=== PATIENT | male | born 1955 | race Caucasian/White ===

== ENCOUNTER 2024-01-21 11:33 | Outpatient (AMB) | payer MEDICARE, SELFPAY ==
--- NOTE | 2024-01-21 11:39 | A.OFFVIS_ITS ---
Intake Visit Reasons: Elevated PSA Intake Note: New Patient presents for initial visit for elevated psa Urology Medications: none Blood Thinner: none Salt Refiner Required: No Accompanied by: Self / Same As Patient Allergies No Known Allergies Allergy (Verified 01/21/24 12:27) Medication List - Last Reconciled 01/21/24 by SUGAR Pierre cholecalciferol (vitamin D3) 50 mcg PO DAILY multivitamin 1 tab PO DAILY turmeric root extract 500 mg PO DAILY HPI Comments Details: Saturnino is a very pleasant 68-year-old male patient of Dr. Lassiter. He has a past medical history of hyperlipidemia, osteoarthritis, and elevated PSA. He presents to the office today as a new patient for an elevated PSA. In discussion with the patient today he reports having followed up with his PCP and has been having an elevated PSA for approximately 1 year. He reports recommendations were made for urology referral for further assessment evaluation. He brings with him his PSAs today. As noted and trended below: PSA: 2016 3.5, 02/04 5.8, 05/07 6.1, 09/06 6.3 % free PSA 9.1%. When asked he denies any known family history of prostate cancer. He reports having had SHERRILL with PCP and enlarged prostate noted otherwise no other abnormalities. He currently denies any bothersome urinary issues or concerns. Discussed at length potential causes of elevated PSA. Reviewed PCPT risk calculator results 28% chance that prostate biopsy is negative, 46% chance of low-grade prostate cancer, and 26% chance of high-grade prostate cancer. Discussed further workup with redraw of PSA as well as retroperitoneal ultrasound. Discussed risks and benefits of prostate biopsy. He discusses his reluctant see to prostate biopsy. He denies urinary urgency, urinary frequency, incontinence, nocturia, hematuria, dysuria, foul smelling urine, changes to urinary stream, flank pain, fever, and or chills. He is happy with his current voiding parameters. He otherwise offers no other issues or concerns at this time. [facility] Medical History (Updated 01/21/24 @ 12:12 by SUGAR Pierre) Hyperlipidemia Avitaminosis D Insulin resistance Primary osteoarthritis High prostate specific antigen (PSA) Review of Systems Const Reports no additional complaints Eyes Reports no additional complaints ENT Reports no additional complaints Card Reports as per HPI Resp Reports no additional complaints GI Reports no additional complaints Reports as per HPI Musc Reports as per HPI Neuro Reports no additional complaints Psych Reports no additional complaints Endo Reports no additional complaints Aaron/Lymph Reports no additional complaints Aller/Immun Reports no additional complaints Physical Exam Const General: cooperative, healthy appearing, comfortable, no acute distress, well developed, alert and awake Orientation/consciousness: patient oriented x3 HEENT Head: Yes normal to inspection, Yes normocephalic and Yes atraumatic Ears: hearing grossly normal bilaterally Eyes General: appearance normal, both eyes and all related structures Neck Neck: Yes normal visual inspection and Yes trachea midline Chest Chest palpation & inspection: normal inspection of the chest Resp Effort & Inspection: normal respiratory effort and able to speak in complete sentences Cardio Rate: regular rate GI Inspection: Yes normal to inspection General: Yes no CVA tenderness Back/Spine/Pelvis Back: no CVA tenderness Skin General skin exam: no rashes or lesions noted Neuro General: patient oriented x3 Extrem General: Yes normal to inspection Psych Appearance: grossly normal and well kempt Mental Status: mental status grossly normal Speech and movement: Normal speech and movement present and Clear speech present Affect: normal affect Attitude: cooperative Thought process: Normal thought process present Thought content: Normal thought content present Insight: Fair insight present (Psych) Judgement: Fair judgement present (Psych) Results AMB Urinalysis, Automated UA Leukoctes 0 Kalpana/uL Last Edit by [employer] on 01/21/24 11:56 UA Nitrite Negative Last Edit by [employer] on 01/21/24 11:56 UA Urobilinogen 0.2 mg/dL Last Edit by [employer] on 01/21/24 11:56 UA Protein 0 mg/dL Last Edit by [employer] on 01/21/24 11:56 UA pH 6.0 Last Edit by [employer] on 01/21/24 11:56 UA Blood 0 Teddy/uL Last Edit by [employer] on 01/21/24 11:56 UA Specific [place] 1.020 Last Edit by [employer] on 01/21/24 11:56 UA Ketone Negative Last Edit by [employer] on 01/21/24 11:56 UA Bilirubin 0 mg/dL Last Edit by [employer] on 01/21/24 11:56 UA Glucose 0 mg/dL Last Edit by Karishma Allen on 01/21/24 11:56 Results Reviewed Results Reviewed: Laboratory Last Values Urine pH (Auto) 6.0 01/21/24 11:55 Specific [place] (Auto) 1.020 01/21/24 11:55 Urine Protein (Auto) 0 mg/dL 01/21/24 11:55 Glucose (UA)(Auto) 0 mg/dL 01/21/24 11:55 Urine Ketones (Auto) Negative 01/21/24 11:55 Urine Blood (Auto) 0 Teddy/uL 01/21/24 11:55 Urine Nitrite (Auto) Negative 01/21/24 11:55 Urine Bilirubin (Auto) 0 mg/dL 01/21/24 11:55 Urine Urobilinogen (Auto) 0.2 mg/dL 01/21/24 11:55 Leukocyte Esterase (Auto) 0 Kalpana/uL 01/21/24 11:55 Assessment & Plan Assessment & Plan (1) High prostate specific antigen (PSA): Code(s): R97.20 - Elevated prostate specific antigen [PSA] Category: Medical Plan In office urinalysis results reviewed with the patient today; as noted above. PSA results reviewed and trended as noted above. Discussed at length potential causes of elevated PSA. SHERRILL offered however has had it with PCP recently. Discussed risks and benefits of prostate biopsy. Will obtain redraw of PSA with no sex the night before, no caffeine morning of, and no heavy lifting 1-2 days prior. Will obtain retroperitoneal ultrasound for further assessment evaluation. He currently denies any bothersome urinary issues. He is happy with his current voiding parameters. Follow-up in 1-2 months with imaging and labs to be completed prior; or sooner with any issues, concerns, and or questions. Orders: Orders AMB Urinalysis Automated Today Z13.9 - Encounter for screening, unspecified PSA,Total (Free>4and<10) Today R97.20 - Elevated prostate specific antigen [PSA] US retroperitoneal comp Today R97.20 - Elevated prostate specific antigen [PSA] Patient Instructions: The patient had an opportunity to ask questions regarding the treatment plan. All questions were answered. Physical exam, labs, and imaging were discussed and reviewed in detail. As well as risks, benefits, and discussion of treatment choices. No major barriers to understanding were identified. The patient expressed understanding and agreement with the above treatment plan. The patient was made aware they should contact our office by phone for worsening of their current condition, the appearance of new symptoms, or with any questions or concerns. Compliance is encouraged with any medications and follow up testing that is ordered. It is a privilege to be allowed the opportunity to participate in? your urological care.? Again, if you have any questions or concerns If you have any questions or concerns please do not hesitate to contact me. The office is [phone]. This note is constructed using voice recognition software. While every effort has been made to ensure accuracy brickmason apprentice errors may have been included. Yours sincerely, ANANT Pierre-FARRAH Coding Level of Care Code New Pt Level 3 (69934) Diagnoses High prostate specific antigen (PSA) R97.20
== END 2024-01-21 12:18 | disposition home or self-care (01) ==
PROVIDERS: PCP Family Medicine; Visit Provider Nurse Practitioner Family
DX: R97.20 Elevated prostate specific antigen [PSA] (principal); Z13.9 Encounter for screening, unspecified
CPT/HCPCS: 99203

== ENCOUNTER → 2024-01-21 11:33 | Outpatient (BNVA) | payer MEDICARE, SELFPAY | PROVIDERS: PCP Family Medicine; Visit Provider Nurse Practitioner Family | DX: R97.20 Elevated prostate specific antigen [PSA] (principal) | CPT/HCPCS: 81003; 99202 ==

== ENCOUNTER 2024-01-28 10:52 | Outpatient (REF) | payer MEDICARE, SELFPAY ==
--- NOTE | ~2024-01-28 | US_ITS ---
EXAMINATION: US RETROPERITONEAL COMPLETE (RENAL) CLINICAL INFORMATION: Elevated prostate-specific antigen (PSA). COMPARISON: None available. TECHNIQUE: Real-time imaging of the kidneys and bladder. FINDINGS: RIGHT KIDNEY: 11.3 x 6.7 x 5.4 cm (SAG x AP x TRV). The kidney is normal in size, contour, and echogenicity. Renal cortical thickness is normal. No calculi or focal parenchymal lesions. No hydronephrosis. LEFT KIDNEY: 11.4 x 6.5 x 4.6 cm (SAG x AP x TRV). The kidney is normal in size, contour, and echogenicity. Renal cortical thickness is normal. No calculi or focal parenchymal lesions. No hydronephrosis. BLADDER: Well distended and normal. Bilateral ureteral jets are demonstrated. Prevoid bladder volume is 218.0 mL. Postvoid bladder volume is 30.0 mL. Enlarged prostate, volume 30.7 mL. US/US retroperitoneal comp IMPRESSION: Enlarged prostate measuring 31 mL. No hydronephrosis. Post void bladder residual volume of 30 mL.
== END 2024-01-28 10:53 | disposition home or self-care (01) ==
LOC: HO.US 10:52
PROVIDERS: PCP Family Medicine; Visit Provider Nurse Practitioner Family
DX: R97.20 Elevated prostate specific antigen [PSA] (principal); N40.0 Benign prostatic hyperplasia without lower urinary tract symptoms
CPT/HCPCS: 76770

== ENCOUNTER 2024-03-23 11:49 | Outpatient (AMB) | payer MEDICARE, SELFPAY ==
--- NOTE | 2024-03-23 11:51 | MHC.OFFVIS ---
Intake Visit Reasons: 2m/US/PSA Intake Note: Patient presents for follow up visit on: elevated psa PSA: 7.0 Urology Medications: none Blood Thinner: none Carburetor Expert Required: No Accompanied by: Self / Same As Patient Allergies No Known Allergies Allergy (Verified 03/23/24 13:04) Medication List - Last Reconciled 03/23/24 by SUGAR Pierre cholecalciferol (vitamin D3) 50 mcg PO DAILY multivitamin 1 tab PO DAILY turmeric root extract 500 mg PO DAILY HPI Comments Details: Saturnino is a very pleasant 69-year-old male patient of Dr. Lassiter. He has a past medical history of hyperlipidemia, osteoarthritis, and elevated PSA. He presents to the office today for a follow up. Of note, patient was seen approximately 2 months ago at which time a retroperitoneal ultrasound and redraw of PSA were ordered for further assessment evaluation. These results were reviewed with the patient today. Bilateral kidneys no calculi, lesions, and or hydronephrosis. The bladder is well distended and normal. Bilateral ureteral jets are demonstrated. Pre void bladder volume is approximately 220 mL. Postvoid bladder volume is approximately 30 mL. The prostate is enlarged at approximately 31 mL. PSAs are as follows: PSA: 2017 3.5, 02/04 5.8, 05/07 6.1, 09/06 6.3 % free PSA 9.1%, 03/07 7.0 %free PSA 6.6 PCPT risk calculator results reviewed with the patient today. 9% chance that biopsy is negative for prostate cancer, 52% chance of low-grade prostate cancer, and 39% chance of high-grade prostate cancer. Discussed further treatment options to include prostate biopsy versus prostate MRI. Risks and benefits of these interventions were discussed at length. He discusses the recent loss of his son to cancer. When asked he denies any known family history of prostate cancer. He reports having had SHERRILL with PCP and enlarged prostate noted otherwise no other abnormalities. He denies urinary urgency, urinary frequency, incontinence, nocturia, hematuria, dysuria, foul smelling urine, changes to urinary stream, flank pain, fever, and or chills. He is happy with his current voiding parameters. He otherwise offers no other issues or concerns at this time. COUNTS INCLUDE 234 BEDS AT THE [facility] Medical History Hyperlipidemia Avitaminosis D Insulin resistance Primary osteoarthritis High prostate specific antigen (PSA) Review of Systems Const Reports no additional complaints Eyes Reports no additional complaints ENT Reports no additional complaints Card Reports as per HPI Resp Reports no additional complaints GI Reports no additional complaints Reports as per HPI Musc Reports as per HPI Neuro Reports no additional complaints Psych Reports no additional complaints Endo Reports no additional complaints Aaron/Lymph Reports no additional complaints Aller/Immun Reports no additional complaints Physical Exam Const General: cooperative, healthy appearing, comfortable, no acute distress, well developed, alert and awake Orientation/consciousness: patient oriented x3 HEENT Head: Yes normal to inspection, Yes normocephalic and Yes atraumatic Ears: hearing grossly normal bilaterally Eyes General: appearance normal, both eyes and all related structures Neck Neck: Yes normal visual inspection and Yes trachea midline Chest Chest palpation & inspection: normal inspection of the chest Resp Effort & Inspection: normal respiratory effort and able to speak in complete sentences Cardio Rate: regular rate GI Inspection: Yes normal to inspection General: Yes no CVA tenderness Back/Spine/Pelvis Back: no CVA tenderness Skin General skin exam: no rashes or lesions noted Neuro General: patient oriented x3 Extrem General: Yes normal to inspection Psych Appearance: grossly normal and well kempt Mental Status: mental status grossly normal Speech and movement: Normal speech and movement present and Clear speech present Affect: normal affect Attitude: cooperative Thought process: Normal thought process present Thought content: Normal thought content present Insight: Fair insight present (Psych) Judgement: Fair judgement present (Psych) Results AMB Urinalysis, Automated UA Leukoctes 0 Kalpana/uL Last Edit by [employer] Tiffany on 03/23/24 12:14 UA Nitrite Negative Last Edit by [employer] Tiffany on 03/23/24 12:14 UA Urobilinogen 0.2 mg/dL Last Edit by [employer] on 03/23/24 12:14 UA Protein 0 mg/dL Last Edit by [employer] on 03/23/24 12:14 UA pH 6.0 Last Edit by [employer] on 03/23/24 12:14 UA Blood 0 Teddy/uL Last Edit by [employer] on 03/23/24 12:14 UA Specific [place] 1.015 Last Edit by [employer] on 03/23/24 12:14 UA Ketone Negative Last Edit by Karishma Allen on 03/23/24 12:14 UA Bilirubin 0 mg/dL Last Edit by Karishma Allen on 03/23/24 12:14 UA Glucose 0 mg/dL Last Edit by Karishma Allen on 03/23/24 12:14 Results Reviewed Results Reviewed: Laboratory Last Values Urine pH (Auto) 6.0 03/23/24 12:06 Specific [place] (Auto) 1.015 03/23/24 12:06 Urine Protein (Auto) 0 mg/dL 03/23/24 12:06 Glucose (UA)(Auto) 0 mg/dL 03/23/24 12:06 Urine Ketones (Auto) Negative 03/23/24 12:06 Urine Blood (Auto) 0 Teddy/uL 03/23/24 12:06 Urine Nitrite (Auto) Negative 03/23/24 12:06 Urine Bilirubin (Auto) 0 mg/dL 03/23/24 12:06 Urine Urobilinogen (Auto) 0.2 mg/dL 03/23/24 12:06 Leukocyte Esterase (Auto) 0 Kalpana/uL 03/23/24 12:06 Date of Service: 01/28/24 EXAMINATION: US RETROPERITONEAL COMPLETE (RENAL) FINDINGS: RIGHT KIDNEY: 11.3 x 6.7 x 5.4 cm (SAG x AP x TRV). The kidney is normal in size, contour, and echogenicity. Renal cortical thickness is normal. No calculi or focal parenchymal lesions. No hydronephrosis. LEFT KIDNEY: 11.4 x 6.5 x 4.6 cm (SAG x AP x TRV). The kidney is normal in size, contour, and echogenicity. Renal cortical thickness is normal. No calculi or focal parenchymal lesions. No hydronephrosis. BLADDER: Well distended and normal. Bilateral ureteral jets are demonstrated. Prevoid bladder volume is 218.0 mL. Postvoid bladder volume is 30.0 mL. Enlarged prostate, volume 30.7 mL. IMPRESSION: Enlarged prostate measuring 31 mL. No hydronephrosis. Post void bladder residual volume of 30 mL. Assessment & Plan Assessment & Plan (1) High prostate specific antigen (PSA): Code(s): R97.20 - Elevated prostate specific antigen [PSA] Category: Medical Plan: Plan Risks and benefits regarding trans rectal ultrasound with prostate biopsy were discussed.? Options of continued surveillance, no treatment and biopsy were offered. The risks include but are not limited to, urinary tract infection, sepsis, difficulty urinating, bleeding into the rectum or bladder that requires intervention and transfusion,and failure to diagnose prostate cancer. The patient understands the options and the risks involved. They wish to proceed. Printed information was provided to ensure he remains off anticoagulation for the appropriate length of time. He may require cardiology or PCP clearance.? An antibiotic will be administered prior to, and following the procedure Plan In office urinalysis results reviewed with the patient today; as noted above. PVR 0 mL. Recent PSA results reviewed with the patient today; as noted above. Recent retroperitoneal ultrasound results reviewed with the patient today; as noted above. Discussed further treatment options to include prostate MRI verses MRI of the prostate; risks and benefits of these interventions were discussed at length. All questions were answered. Patient currently denies any bothersome urinary issues or concerns. He reports be happy with current voiding parameters. Prescription provided for antibiotic therapy discussed specific instructions of taking medication day before procedure, day of procedure, and day after. Will schedule for prostate biopsy as discussed. Follow-up per doctor's orders; or sooner with any issues, concerns, and or questions. Orders: Orders AMB Urinalysis Automated Today Z13.9 - Encounter for screening, unspecified Medications: New levofloxacin take 1 tablet day before procedure, 1 tablet day of procedure and 1 tablet day after procedure 500 mg PO daily 3 tabs 0RF 3 days Patient Instructions: The patient had an opportunity to ask questions regarding the treatment plan. All questions were answered. Physical exam, labs, and imaging were discussed and reviewed in detail. As well as risks, benefits, and discussion of treatment choices. No major barriers to understanding were identified. The patient expressed understanding and agreement with the above treatment plan. The patient was made aware they should contact our office by phone for worsening of their current condition, the appearance of new symptoms, or with any questions or concerns. Compliance is encouraged with any medications and follow up testing that is ordered. It is a privilege to be allowed the opportunity to participate in? your urological care.? Again, if you have any questions or concerns If you have any questions or concerns please do not hesitate to contact me. The office is [phone]. This note is constructed using voice recognition software. While every effort has been made to ensure accuracy watch repairer apprentice errors may have been included. Yours sincerely, SUSY PierreP-BC Coding Level of Care Code Est Pt Level 4 (70787) Diagnoses High prostate specific antigen (PSA) R97.20
== END 2024-03-23 13:30 | disposition home or self-care (01) ==
PROVIDERS: PCP Family Medicine; Visit Provider Nurse Practitioner Family
DX: Z13.9 Encounter for screening, unspecified (principal); R97.20 Elevated prostate specific antigen [PSA]
CPT/HCPCS: 99214

== ENCOUNTER → 2024-03-23 11:49 | Outpatient (BNVA) | payer MEDICARE, SELFPAY | PROVIDERS: PCP Family Medicine; Visit Provider Nurse Practitioner Family | DX: R97.20 Elevated prostate specific antigen [PSA] (principal) | CPT/HCPCS: 81003; 99212 ==

== ENCOUNTER 2024-04-15 07:43 | Outpatient (REF) | payer OTHER, SELFPAY ==
--- NOTE | 2024-04-15 08:35 | W.PM.OPN ---
Operative Note Operative Note Date of Service: 04/15/24 Narrative: Preoperative diagnosis: Elevated PSA Postoperative diagnosis: Elevated PSA Procedure: 1. transrectal ultrasound measurement of prostate 2. transrectal ultrasound-guided pudendal nerve block 3. transrectal ultrasound-guided prostate biopsy 12 core Surgeon: Dr. Farooq Mlahotra Anesthetic: 10cc 1% lidocaine Indications for procedure: Elevated PSA 03/07 7.0 %free PSA 6.6 Counselling: Technical aspects, risks and benefits of proposed procedure were discussed in full. All questions have been answered, written consent has been obtained and patient agrees to proceed. Procedure: The patient was brought into the procedure area and placed in a left lateral decubitus position. Patient identity confirmed. Perioperative antibiotics confirmed. Safety pause time out performed. SHERRILL was performed to dilate rectal sphincter Iodine 10cc with 60 cc gel was placed per rectum to reduce infection risk using a catheter tip syringe. 8 Hz Catracho rectal end-fire ultrasound probe was placed transrectally without difficulty. The prostate was visualized. Seminal vesicles were normal. Prostate margins were clearly demarcated. Bladder was seen superiorly. No cystic structures were noted calcifications were noted at the surgical margin The prostate was otherwise heterogenous in nature The prostate was measured in 3 dimensions Prostatic Width: 4.3 cm Prostatic Height: 3.4 cm Urethral Length: 4.2 cm Total volume equals : 33 ml An ultrasound-guided pudendal nerve block was performed using a 22 gauge spinal needle in the sagittal plane. 4 cc of 1% lidocaine placed at the junction of each seminal vesicle and 2 cc placed at the apex of the prostate. A 12 core biopsy was performed with 6 cores each side using an 18 gauge prostate biopsy gun. Two cores each were taken at the prostate apex, mid and base on each side. Cores were spaced between lateral and medial aspects. Each core was examined as placed on specimen foam as part of quality assurance project manager to ensure a minimum 1 cm of length and minimal discontinuity. He tolerated the procedure well with minimal rectal bleeding. Blood pressure remained stable following procedure. He was able to ambulate to bathroom after 5 minutes. Printed instructions regarding antibiotic use and common adverse events from the procedure such as low-grade temperature, potential infection and bleeding were given. He understands to call the office or go to an emergency room should any of these events arise. Pathology: 12 core prostate biopsy. CPT code 85082: Transrectal ultrasound; this is a diagnostic test for evaluation of the prostate and surrounding structures, looking for abnormalities or suspicious areas worrisome for cancer - billed based on included volume measurements CPT code 75729: Biopsy, prostate; needle or punch, single or multiple, any approach CPT code 96574: Ultrasonic guidance for needle placement (eg, biopsy, aspiration, injection, localization device), imaging supervision and interpretation
[2024-04-15] MEDS: Lidocaine HCl 1 % MPF 5 ML VIAL 10 ML SUBCUT (09:05)
== END 2024-04-15 07:44 | disposition home or self-care (01) ==
LOC: HO.US 07:43
PROVIDERS: PCP Family Medicine; Visit Provider Urology
DX: R97.20 Elevated prostate specific antigen [PSA] (principal)
CPT/HCPCS: 55700; 76942; 88305; 88344

== ENCOUNTER → 2024-04-15 07:43 | Outpatient (BNV) | payer OTHER, SELFPAY | PROVIDERS: PCP Family Medicine; Visit Provider Urology | DX: R97.20 Elevated prostate specific antigen [PSA] (principal) | CPT/HCPCS: 55700; 76872; 76942 ==

== ENCOUNTER 2024-04-29 13:37 | Outpatient (AMB) | payer OTHER, SELFPAY ==
--- NOTE | 2024-04-29 13:45 | MHC.OFFVIS ---
Intake Visit Reasons: Prostate bx results Intake Note: Prostate Biopsy Results Summer Analyst Required: No Allergies No Known Allergies Allergy (Verified 03/23/24 13:04) Medication List - Last Reconciled 04/29/24 by Farooq Malhotra MD cholecalciferol (vitamin D3) 50 mcg PO DAILY levofloxacin 500 mg PO daily 3 days multivitamin 1 tab PO DAILY turmeric root extract 500 mg PO DAILY HPI Comments Details: Saturnino is a pleasant male. He is a patient of Dr. Lassiter. He is seen for the following urologic conditions - prostate cancer Discussion of results today Low volume, grade group 2 Discussed staging Will complete prostate MRI and [facility] genetics on sample PSA: 2016 3.5, 02/04 5.8, 05/07 6.1, 09/06 6.3 % free PSA 9.1%, 03/07 7.0 %free PSA 6.6 PT1c Prostate volume on ultrasound 35 cc Prostate Cancer - Ultra Low Histologic type: Adenocarcinoma, acinar type Histologic grade: - [place] score: 3+4=7 (left mid lateral - 10%), 3+3=6 (left apex lateral 60% and medial 50%, right mid medial 10%) % of pattern 4: 10% of the tumor - % of pattern 5: 0% Grade group: 2 and 1 - Number cores positive: 4 Total number of cores: 12 % of tissue involved: 10% of all tissue examined [facility] Medical History Hyperlipidemia Avitaminosis D Insulin resistance Primary osteoarthritis High prostate specific antigen (PSA) Review of Systems Const All systems reviewed & are unremarkable except as noted in HPI and below Reports no additional complaints Resp Reports no additional complaints GI Reports no additional complaints Reports as per HPI Musc Reports no additional complaints Physical Exam Telemedicine evaluation Appropriate responses Regular breathing rate and rhythm HEENT Head: Yes normal to inspection Ears: hearing grossly normal bilaterally Eyes General: appearance normal, both eyes and all related structures Neck Neck: Yes normal visual inspection Chest Chest palpation & inspection: normal inspection of the chest Resp Effort & Inspection: normal respiratory effort and able to speak in complete sentences Telehealth Telehealth Telehealth Platform: [facility] Location of provider rendering services: practice address Location of patient: address on file Patient Identification confirmed using: Name, : Yes Telehealth method: video Patient verbally consented to treatment: Yes Patient verbally consented to billing insurance company: Yes Patient informed of any privacy concerns related to visit: Yes Minutes spent on Phone/Video with Pt.: 15 Assessment & Plan Assessment & Plan (1) Hormone sensitive prostate cancer: Code(s): C61 - Malignant neoplasm of prostate; Z19.1 - Hormone sensitive malignancy status Category: Medical Plan Staging MRI prostate [facility] Orders: Orders MR pelvis wo/w con 1 Month C61 - Malignant neoplasm of prostate, Z19.1 - Hormone sensitive malignancy status Patient Instructions: Imaging studies, laboratory and physical exam results were discussed and reviewed in detail. No major barriers to patient understanding were identified. An opportunity to ask questions regarding the treatment plan was provided. All questions were answered. The patient expressed understanding and agreement with the above treatment plan. The patient is aware they should contact our office by phone for worsening of their current condition or the appearance of new urologic symptoms. Compliance is encouraged with any medications and followup testing that is ordered. It is a privilege to participate in the urologic care of your patient. If you have any questions or concerns regarding treatment for the above conditions, or other urologic issues, please do not hesitate to contact me. The office telephone contact is [phone]. This note is constructed using voice recognition software. While every effort has been made to ensure accuracy adjunct english instructor errors may have been included. Yours sincerely, Dr Farooq Malhotra MD, MARILY [facility] - Urology Providers of Expert, Compassionate Care for the Genitourinary System Coding Level of Care Code Est Pt Level 4 (73794) Complex EM visit Add On G2211 Diagnoses Hormone sensitive prostate cancer C61; Z19.1
== END 2024-04-29 15:50 | disposition home or self-care (01) ==
LOC: HO.HUSH 13:37
PROVIDERS: PCP Family Medicine; Visit Provider Urology
DX: C61 Malignant neoplasm of prostate (principal); Z19.1 Hormone sensitive malignancy status
CPT/HCPCS: 99214; G2211

== ENCOUNTER → 2024-04-29 13:37 | Outpatient (BNVA) | payer OTHER, SELFPAY | PROVIDERS: PCP Family Medicine; Visit Provider Urology ==

== ENCOUNTER 2024-07-06 14:38 | Outpatient (AMB) | payer OTHER, SELFPAY ==
--- NOTE | 2024-07-06 14:39 | A.OFFVIS_ITS ---
Intake Visit Reasons: tele results review Intake Note: Patient is Present for Telephone Follow Up MRI Results Urology Med: None Antibiotic Allergy:None Blood Thinner:None Recent PSA: 03/12/24 PSA 7.0 Creative Services Manager Required: No Accompanied by: Self / Same As Patient Allergies No Known Allergies Allergy (Verified 07/06/24 14:40) Medication List - Last Reconciled 07/06/24 by Farooq Malhotra MD cholecalciferol (vitamin D3) 50 mcg PO DAILY finasteride 5 mg PO DAILY 90 days multivitamin 1 tab PO DAILY turmeric root extract 500 mg PO DAILY HPI Comments Details: Saturnino is a pleasant male. He is a patient of Dr. Lassiter. He is seen for the following urologic conditions - prostate cancer Telemedicine Evaluation 15 min Consultation [employer] Parag Video Discussed findings from staging MRI and genetic evaluation Will start with finasteride for active surveillance Discussion of brachytherapy and external beam radiation He is interested in finding out more information regarding radiation oncology Referral to [facility] for assessment Three-month follow-up PSA: 2016 3.5, 02/04 5.8, 05/07 6.1, 09/06 6.3 % free PSA 9.1%, 03/07 7.0 % free PSA 6.6 PT1c Prostate volume on ultrasound 35 cc Prostate Cancer - Low risk 12/06 - grade group 2 Histologic type: Adenocarcinoma, acinar type Histologic grade: - [place] score: 3+4=7 (left mid lateral - 10%), 3+3=6 (left apex lateral 60% and medial 50%, right mid medial 10%) % of pattern 4: 10% of the tumor - % of pattern 5: 0% Grade group: 2 and 1 - Number cores positive: 4 Total number of cores: 12 % of tissue involved: 10% of all tissue examined Staging MRI - 1.5 cm left lateral zone peripheral PI-RADS 5 lesion. Anterior extension. No IRINA. Genetic evaluation - [email or web address] genetics places in higher risk favorable intermedi ate. Molecular score 3.8 which is low. Clinical feature pushes into recommendation for monotherapy. [facility], [facility] Medical History Hyperlipidemia Avitaminosis D Insulin resistance Primary osteoarthritis High prostate specific antigen (PSA) Review of Systems Const All systems reviewed & are unremarkable except as noted in HPI and below Reports no additional complaints Resp Reports no additional complaints GI Reports no additional complaints Reports as per HPI Musc Reports no additional complaints Physical Exam Telemedicine evaluation Appropriate responses Regular breathing rate and rhythm HEENT Head: Yes normal to inspection Ears: hearing grossly normal bilaterally Eyes General: appearance normal, both eyes and all related structures Neck Neck: Yes normal visual inspection Chest Chest palpation & inspection: normal inspection of the chest Resp Effort & Inspection: normal respiratory effort and able to speak in complete sentences Telehealth Telehealth Telehealth Platform: [employer] Location of provider rendering services: practice address Location of patient: address on file Patient Identification confirmed using: Name, : Yes Telehealth method: video Patient verbally consented to treatment: Yes Patient verbally consented to billing insurance company: Yes Patient informed of any privacy concerns related to visit: Yes Minutes spent on Phone/Video with Pt.: 15 Assessment & Plan Assessment & Plan (1) Hormone sensitive prostate cancer: Comment: Low volume grade group 2 Code(s): C61 - Malignant neoplasm of prostate; Z19.1 - Hormone sensitive malignancy status Category: Medical Plan Low volume grade group 2 Orders: Orders Prostate Specific Antigen 3 Months C61 - Malignant neoplasm of prostate, Z19.1 - Hormone sensitive malignancy status Referrals Radiation Oncology Referral C61 - Malignant neoplasm of prostate, Z19.1 - Hormone sensitive malignancy status Medications: New finasteride 5 mg PO DAILY 90 tabs 1RF 90 days N13.8 - Other obstructive and reflux uropathy, N40.1 - Benign prostatic hyperplasia with lower urinary tract symptoms Patient Instructions: Imaging studies, laboratory and physical exam results were discussed and reviewed in detail. No major barriers to patient understanding were identified. An opportunity to ask questions regarding the treatment plan was provided. All questions were answered. The patient expressed understanding and agreement with the above treatment plan. The patient is aware they should contact our office by phone for worsening of their current condition or the appearance of new urologic symptoms. Compliance is encouraged with any medications and followup testing that is ordered. It is a privilege to participate in the urologic care of your patient. If you have any questions or concerns regarding treatment for the above conditions, or other urologic issues, please do not hesitate to contact me. The office telephone contact is [phone]. This note is constructed using voice recognition software. While every effort has been made to ensure accuracy modeling agent errors may have been included. Yours sincerely, Dr Farooq Malhotra MD, MAR[facility] - Urology Providers of Expert, Compassionate Care for the Genitourinary System Coding Level of Care Code Tele Est Pt Level 4 (38226) Diagnoses Hormone sensitive prostate cancer C61; Z19.1
== END 2024-07-06 15:29 | disposition home or self-care (01) ==
LOC: HO.HUSH 14:38
PROVIDERS: PCP Family Medicine; Visit Provider Urology
DX: C61 Malignant neoplasm of prostate (principal); Z19.1 Hormone sensitive malignancy status
CPT/HCPCS: 99214

== ENCOUNTER → 2024-07-06 14:38 | Outpatient (BNVA) | payer OTHER, SELFPAY | PROVIDERS: PCP Family Medicine; Visit Provider Urology ==

== ENCOUNTER 2024-10-05 13:03 | Outpatient (AMB) | payer OTHER, SELFPAY ==
--- NOTE | 2024-10-05 13:07 | A.OFFVIS_ITS ---
Intake Visit Reasons: 3m/Radiation Follow Up(Need PSA)([phone]) Intake Note: Patient is present for 3M/RADIATION F/U Urology Medication:FINASTERIDE Antibiotic Allergy:NONE Blood Thinner:NONE Test Engineering Intern Required: No Allergies No Known Allergies Allergy (Verified 10/05/24 13:08) HPI Comments Details: Saturnino is a pleasant male. He is a patient of Dr. Lassiter. He is seen for the following urologic conditions - prostate cancer Brachytherapy scheduled in [place] Will get PSA in six-month time Minimal symptoms PSA: 2016 3.5, 02/04 5.8, 05/07 6.1, 09/06 6.3 % free PSA 9.1%, 03/07 7.0 % free PSA 6.6 PT1c Prostate volume on ultrasound 35 cc Prostate Cancer - Low risk 12/06 - grade group 2 Histologic type: Adenocarcinoma, acinar type Histologic grade: - [place] score: 3+4=7 (left mid lateral - 10%), 3+3=6 (left apex lateral 60% and medial 50%, right mid medial 10%) % of pattern 4: 10% of the tumor - % of pattern 5: 0% Grade group: 2 and 1 - Number cores positive: 4 Total number of cores: 12 % of tissue involved: 10% of all tissue examined Staging MRI - 1.5 cm left lateral zone peripheral PI-RADS 5 lesion. Anterior extension. No IRINA. Genetic evaluation - [facility] genetics places in higher risk favorable intermediate. Molecular score 3.8 which is low. Clinical feature pushes into recommendation for monotherapy. [facility] Medical History Hyperlipidemia Avitaminosis D Insulin resistance Primary osteoarthritis High prostate specific antigen (PSA) Review of Systems Const Denies chills and Denies fever(s) Card Reports no additional complaints and Denies syncope Resp Denies cough GI Denies abdominal pain and Denies heartburn Reports as per HPI and Denies change in libido Neuro Denies syncope Psych Denies change in libido Endo Denies change in libido Physical Exam Const General: cooperative, healthy appearing, comfortable and no acute distress Orientation/consciousness: patient oriented x3 HEENT Face and sinus: Yes normal facial exam Mouth: moist mucous membranes Neck Neck: Yes normal visual inspection, Yes full ROM and Yes trachea midline Chest Chest palpation & inspection: normal inspection of the chest Resp Effort & Inspection: normal respiratory effort, able to speak in complete sentences and no respiratory distress GI Inspection: Yes normal to inspection Back/Spine/Pelvis Cervical Spine: normal cervical lordosis Thoracic/Lumbar Spine: thoracic and lumbar spine normal to inspection Skin General skin exam: no rashes or lesions noted Neuro General: patient oriented x3, gait normal, tone normal and moves all extremities Extrem General: Yes normal to inspection and Yes capillary refill normal Assessment & Plan Assessment & Plan (1) Hormone sensitive prostate cancer: Comment: Low volume grade group 2 Code(s): C61 - Malignant neoplasm of prostate; Z19.1 - Hormone sensitive malignancy status Category: Medical Plan Planning for brachytherapy Patient Instructions: Imaging studies, laboratory and physical exam results were discussed and reviewed in detail. No major barriers to patient understanding were identified. An opportunity to ask questions regarding the treatment plan was provided. All questions were answered. The patient expressed understanding and agreement with the above treatment plan. The patient is aware they should contact our office by phone for worsening of their current condition or the appearance of new urologic symptoms. Compliance is encouraged with any medications and followup testing that is ordered. It is a privilege to participate in the urologic care of your patient. If you have any questions or concerns regarding treatment for the above conditions, or other urologic issues, please do not hesitate to contact me. The office telep [place] contact is [phone]. This note is constructed using voice recognition software. While every effort has been made to ensure accuracy cook camp errors may have been included. Yours sincerely, Dr Farooq Malhotra MD, MAR[facility] - Urology Providers of Expert, Compassionate Care for the Genitourinary System Coding Level of Care Code Est Pt Level 3 (16244) Diagnoses Hormone sensitive prostate cancer C61; Z19.1
== END 2024-10-05 15:45 | disposition home or self-care (01) ==
LOC: HO.HUSH 13:03
PROVIDERS: PCP Family Medicine; Visit Provider Urology
DX: C61 Malignant neoplasm of prostate (principal); Z19.1 Hormone sensitive malignancy status
CPT/HCPCS: 99213

== ENCOUNTER → 2024-10-05 13:03 | Outpatient (BNVA) | payer OTHER, SELFPAY | PROVIDERS: PCP Family Medicine; Visit Provider Urology ==

== ENCOUNTER 2025-08-17 10:41 | Outpatient (AMB) | payer MEDICARE, SELFPAY ==
--- NOTE | 2025-08-17 10:49 | MHC.OFFVIS ---
Intake Visit Reasons: BrachyTherapy Follow Up(set) Intake Note: Reason for Visit: Brachy Therapy Follow up ([facility]) Urology Meds: Finasteride(Stopped Oncologist instructed pt to discontinue medication) Blood Thinners: None Imaging: None Labs: PSA 0.8 05/27/2025 Last PVR: None Brachy Therapy: [facility] 01/12/2025 Supervisor Properties Required: No Accompanied by: Self / Same As Patient Allergies No Known Allergies Allergy (Verified 08/17/25 10:55) HPI Comments Details: Saturnino is a pleasant male. He is a patient of Dr. Lassiter. He is seen for the following urologic conditions - prostate cancer Brachytherapy completed PSA 06/09 0.6 Discussed potential PSA bounce Has had pelvic pressure likely secondary to combination of prostatic swelling with prostate gel Is improving slowly Reassurance provided Prostate Cancer - Low risk 12/06 - grade group 2 - initial management brachytherapy with barragel Prostate brachytherapy completed in [place] Dr Howell 07/[address] implantation PSA: 2016 3.5, 02/04 5.8, 05/07 6.1, 09/06 6.3 % free PSA 9.1%, 03/07 7.0 % free PSA 6.6 PT1c Prostate volume on ultrasound 35 cc Histologic type: Adenocarcinoma, acinar type Histologic grade: - [place] score: 3+4=7 (left mid lateral - 10%), 3+3=6 (left apex lateral 60% and medial 50%, right mid medial 10%) % of pattern 4: 10% of the tumor - % of pattern 5: 0% Grade group: 2 and 1 - Number cores positive: 4 Total number of cores: 12 % of tissue involved: 10% of all tissue examined Staging MRI - 1.5 cm left lateral zone peripheral PI-RADS 5 lesion. Anterior extension. No IRINA. Genetic evaluation - [facility] genetics places in higher risk favorable intermediate. Molecular score 3.8 which is low. Clinical feature pushes into recommendation for monotherapy. [facility] Medical History Hyperlipidemia Avitaminosis D Insulin resistance Primary osteoarthritis High prostate specific antigen (PSA) Review of Systems Const Denies chills and Denies fever(s) Card Reports no additional complaints and Denies syncope Resp Denies cough GI Denies abdominal pain and Denies heartburn Reports as per HPI and Denies change in libido Neuro Denies syncope Psych Denies change in libido Endo Denies change in libido Physical Exam Const General: cooperative, healthy appearing, comfortable and no acute distress Orientation/consciousness: patient oriented x3 HEENT Face and sinus: Yes normal facial exam Mouth: moist mucous membranes Neck Neck: Yes normal visual inspection, Yes full ROM and Yes trachea midline Chest Chest palpation & inspection: normal inspection of the chest Resp Effort & Inspection: normal respiratory effort, able to speak in complete sentences and no respiratory distress GI Inspection: Yes normal to inspection Back/Spine/Pelvis Cervical Spine: normal cervical lordosis Thoracic/Lumbar Spine: thoracic and lumbar spine normal to inspection Skin General skin exam: no rashes or lesions noted Neuro General: patient oriented x3, gait normal, tone normal and moves all extremities Extrem General: Yes normal to inspection and Yes capillary refill normal Assessment & Plan Assessment & Plan (1) Hormone sensitive prostate cancer: Comment: Low volume grade group 2 Code(s): C61 - Malignant neoplasm of prostate; Z19.1 - Hormone sensitive malignancy status Category: Medical Plan Follow-up PSA four-month Orders: Orders Prostate Specific Antigen 4 Months C61 - Malignant neoplasm of prostate, Z19.1 - Hormone sensitive malignancy status Patient Instructions: This note is constructed using voice recognition software. While every effort has been made to ensure accuracy powdered sugar supervisor errors may have been included. Imaging studies, laboratory and physical exam results were discussed and reviewed in detail. No major barriers to patient understanding were identified. An opportunity to ask questions regarding the treatment plan was provided. All questions were answered. The patient expressed understanding and agreement with the above treatment plan. The patient is aware they should contact our office by phone for worsening of their current condition or the appearance of new urologic symptoms. Compliance is encouraged with any medications and followup testing that is ordered. It is a privilege to participate in the urologic care of your patient. If you have any questions or concerns regarding treatment for the above conditions, or other urologic issues, please do not hesitate to contact me. The office telephone contact is [phone]. Sincerely, Dr Farooq Malhotra MD, MAR[facility] - Urology Compassionate Specialist Care for the Genitourinary System Coding Level of Care Code Est Pt Level 3 (92049) Complex visit Add On G2211 Diagnoses Hormone sensitive prostate cancer C61; Z19.1
--- OUTSIDE RECORDS SUMMARY | 2025-08-17 12:17 | XMS_ITS | Clinical Summary ---
Author Organization [facility] Address [address] [place] [address] Phone Care Team Providers Care Receiving Inspector Name Role Phone Farooq Malhotra MD Unavailable Eryn Lassiter Unavailable [phone] Jessie Lentz MD Primary Care Provider [phone] Carlos Howell DO Unavailable Allergies No known active allergies Medications TURMERIC ORAL Take 375 mg by mouth daily. Active therapeutic multivitamin tablet Take 1 tablet by mouth daily. Active b complex vitamins capsule Take 1 capsule by mouth daily. Active cholecalciferol (VITAMIN D3) 2,000 unit tablet 1 tablet daily. Active ciprofloxacin HCl (CIPRO) 500 MG tabletIndications :Malignant neoplasm of prostate Take 1 tab by mouth twice daily starting one day prior to your procedure and continue for 2 additional days (total 3 day course) 6 tablet 5 Active mineral oil enemaIndications: Malignant neoplasm of prostate Place 1 bottle (118mL) rectally for 1 dose the night before the procedure and 1 bottle (118mL) the morning of the procedure. 236 mL 5 Active meloxicam (MOBIC) 7.5 MG tabletIndications :Malignant neoplasm of prostate Take 1 tablet (7.5 mg total) by mouth 2 (two) times a day. 60 tablet 5 Active phenazopyridine (PYRIDIUM) 100 MG tabletIndications :Malignant neoplasm of prostate Take 1 tab by mouth as needed three times daily for pain or burning with urination after procedure 20 tablet 5 Active tamsulosin (FLOMAX) 0.4 mg CapIndications:Ma lignant neoplasm of prostate Take 1 capsule (0.4 mg total) by mouth nightly at bedtime. 90 capsule 3 5 Active Active Problems Problem Noted Date Diagnosed Date Malignant neoplasm of prostate 07/28/2024 Cancer Staging:Clinical: cT1c, cN0, cM0, Grade Group: 2 - Signed by Jarrod Trevino MD on 07/28/2024 High prostate specific antigen (PSA) 02/03/2023 Overview (08/23/2024): PSA 08/2023 6.3, 04/2023 6.1, 01/2023 5.8, 2017 was 3.5. Pt denies symptoms. Referred to urology and had UL to check prostate size. Has another appt 03/2024 Avitaminosis D 01/31/2023 Overview (08/23/2024): last labs 01/2023 wnl Hyperlipidemia 01/31/2023 Overview (08/23/2024): not on meds, last lipid panel 02/2024. Discussed indications for tx and CV risks. Declines statin. On cholestepure Cholesterol, Total 100 - 199 mg/dL 257 High Triglycerides 0 - 149 mg/dL 98 HDL Cholesterol >39 mg/dL 65 VLDL Cholesterol Humberto 5 - 40 mg/dL 17 LDL Chol Calc ([facility]) 0 - 99 mg/dL 175 Prediabetes 01/31/2023 Overview (08/23/2024): A1C 02/2024 5.9% counseled on diet and exercise Primary osteoarthritis, right hand 01/31/2023 Overview (08/23/2024): Recommended topical NSAID Family History Medical History Relation Comments Neuroendocrine tumors Brother Breast cancer Mother Relation Status Comments Brother Mother Social History Tobacco Use Types Packs/Day Years Used Date Smoking Tobacco: Never Smokeless Tobacco: Never Alcohol Use Standard Drinks/Week Comments Not Currently 14 (1 standard drink = 0.6 oz pu re alcohol) 14 Education Answer Date Recorded Are you interested in more education? Not on deanne e 01/10/2023 Are you concerned about learning? Not on file 01/10/2023 No 01/10/2023 No 01/10/2023 Digital Access Answer Date Recorded No 02/08/2023 No 02/08/2023 Reliable internet access at home? Not on file 02/08/2023 Device with a working camera? Not on file Intimate Partner Violence Answer Date R ecorded Are you denied basic needs s uch as food, clothing, or medical care? No 11/10/2024 In the past 12 months have y ou been in a relationship with a person who hurts, threatens, or tries to control you? No 11/10/2024 Are you denied basic needs s uch as food, clothing, or medical care? No 11/10/2024 In the past 12 months have y ou been in a relationship with a person who hurts, threatens, or tries to control you? No 11/10/2024 Sex and Gender Information Value Date Recorded Sex Assigned at Male 10/06/2024 5:45 PM EST Legal Sex Male 9:56 PM EDT Gender Identity Male 10/06/2024 5:45 PM EST Sexual Orientation Straight 10/06/2024 5: 45 PM EST Last Filed Vital Signs Vital Sign Reading Time Taken Comments Blood Pressure 138/80 11/10/2024 1:15 PM EST Pulse 66 11/10/2024 1:15 PM EST Temperature 36.4 C (97.5 F) 11/10/2024 12:29 PM EST Respiratory Rate 15 11/10/2024 1:15 PM EST Oxygen Saturation 98% 11/10/2024 1:15 PM EST Inhaled Oxygen Concentration - - Weight 83.9 kg (185 lb) 11/02/2024 11:22 AM EST Height 180.3 cm (5' 11 ) 11/02/2024 11:22 AM EST Body Mass Index 25.8 11/02/2024 11:22 AM EST Plan of Treatment Health Maintenance Due Date Last Done Comments DEPRESSION SCREENING 1967 HEPATITIS C SCREENING 1973 PNEUMOCOCCAL VACCINES (50+ years) (1 of 2 - PCV) 1974 COLOGUARD 02/27/2000 FIT TEST 02/27/2000 FOBT 02/27/2000 SIGMOIDOSCOPY 02/27/2000 VIRTUAL COLONOSCOPY 02/27/2000 INFLUENZA VACCINE (#1) 2025 , 08/01/2022, 07/31/2021 COVID-19 VACCINE ( season) 2025 06/15/2024, 06/12/2023, 07/08/2022, Additional history exists LIPID PANEL 03/12/2029 03/12/2024, 11/13/2018 RSV VACCINE (1 - 1-dose 75+ series) 2030 Adult Td,Tdap Booster 07/31/2031 07/31/2021, 010 COLONOSCOPY 11/10/2031 11/10/2024, 06/05/2020 COLORECTAL CANCER SCREENING 11/10/2031 ZOSTER VACCINES Completed 08/21/2022, 02/25/2022 SMOKING STATUS SCREENING (Once After 26 Yrs) Completed 11/10/2024 HEPATITIS A VACCINES Aged Out No long er eligible based on patient's age to complete this topic HIB VACCINES Aged Out No longer eligi ble based on patient's age to complete this topic MENINGOCOCCAL VACCINES (ACWY) Aged Out No longer eligible based on patient's age to complete this topic MENINGOCOCCAL VACCINES (B) Aged Out N o longer eligible based on patient's age to complete this topic Medical Devices Not on file Procedures Procedure Name Priority Date/Time Associated Diagnosis Comments ENDOSCOPY, COLON 11/10/2024 12:0 3 PM EST from Last 3 Months or Most Recently Relevant to Health Maintenance Results * ENDOSCOPY, COLON (11/10/2024 12:03 PM EST) Narrative Transcriptions Leonarda Salazar MD - 11/10/2024 12:03 PM EST [facility] Patient Name: Saturnino Wakefield Attending MD:: LEONARDA SALAZAR MD, Procedure Date: 11/10/2024 12:03 PM Date of : 1955 Age: 69 Admit Type: Outpatient Gender: Male Room: [facility] 05 Referring MD: Jessie Lentz MD Exam Type: Colonoscopy Indications: High risk colon cancer surveillance: Personalhistory of colonic polyps, Last colonoscopy: May2020 Medications: Monitored Anesthesia Care Procedure: Informed consent was obtained from the patientafter discussion of the indications, limitations, alternatives, benefits, and risks of the procedure. Risks specifically discussed include but are not limited to medication reactions, missed lesions, bleeding, perforation, or the need for emergent surgery. Throughout the procedure, the patient's blood pressure, pulse, end-tidal CO2, and oxygensaturations were monitored continuously. The Olympus adult variable colonoscope [id number] #2 was introduced through the anus and advanced to the terminal ileum, with identification of theappendiceal orifice and IC valve. The colonoscopy was performed without difficulty. The patient tolerated the procedure well. The quality of the bowelpreparation was good. The terminal ileum, ileocecal valve, appendiceal orifice, and rectum werephotographed. Complications: No immediate complications. Estimated blood loss:None. Findings: The terminal ileum appeared normal. Examination of the right colon was repeated in retroflexion and again in NBI. Retroflexion wasalso performed in the rectum. Multiple diverticula were found in the sigmoidcolon. Internal hemorrhoids were found duringretroflexion. The hemorrhoids were mild. A 2 mm polyp was found in the cecum. The polyp was sessile. The polyp was removed with a cold biopsy forceps. Resection and retrieval were complete. An 8 mm polyp was found in the hepatic flexure. The polyp was sessile. The polyp was removed with acold snare. Resection and retrieval were complete. The exam was otherwise without abnormality. Impression: - The examined portion of the ileum was normal. - Diverticulosis in the sigmoid colon. - Internal hemorrhoids. - One 2 mm polyp in the cecum, removed with a cold biopsy forceps. Resected and retrieved. - One 8 mm polyp at the hepatic flexure, removedwith a cold snare. Resected and retrieved. - The examination was otherwise normal. Recommendation: - Patient has a contact number available for emergencies. The signs and symptoms of potential delayed complications were discussed with thepatient. Return to normal activities tomorrow. Written discharge instructions were provided to thepatient. - Await pathology results. - Repeat colonoscopy for surveillance based on pathology results. Leonarda Salazar LEONARDA SALAZAR MD 11/10/2024 12:27:41 PM This report has been signed electronically. Number of Addenda: 0 Note Initiated On: 11/10/2024 12:03 PM Procedure Code(s): --- Professional --- 45765, Colonoscopy, flexible; with removal of tumor(s), polyp(s), or other lesion(s) by snare technique 73377, 59, Colonoscopy, flexible; with biopsy, single or multiple --- Technical --- 60376, Colonoscopy, flexible; with removal of tumor(s), polyp(s), or other lesion(s) by snare technique 19547, 59, Colonoscopy, flexible; with biopsy, single or multiple CPT copyright 2021 [employer]. All rights reserved. The codes documented in this report are preliminary and upon calendar control clerk blood bank reviewmay be revised to meet current compliance requirements. Procedure Date: 11/10/2024 12:03:05 PM [address] [place] [address] Jessie Lentz MD GI PROCEDURE ORDERABLES Final Result from Last 3 Months or Most Recently Relevant to Health Maintenance Insurance [employer]ED [employer] REPLACEMENT [employer] P[employer] REPLACEMENT [employer] P[employer]ED [employer]MO REPLACEMENT [employer] REPLACEMENT [employer] REPLACEMENT [employer]AC[employer] Care Teams Receiving Inspector Relationship Specialty Start Date End Date Jessie Lentz MD [address] [place] [address] [email or web address] PCP - General Pediatrics 08/17/24 Farooq Malhotra MD Urology 07/14/24 Eryn Lassiter PA [address] [place] [id number] [email or web address] Physician Help Desk Internship 08/17/24 Carlos Howell DO [address] [place] [id number] [email or web address] Radiation Oncology 08/17/24 Additional Source Comments The information contained in this document represents components of the legal health record. It is not the complete legal health record.[facility]
--- OUTSIDE RECORDS SUMMARY | 2025-08-17 12:17 | XMS_ITS | Encounter Summary ---
Author Organization [employer] Address [address] [place] [address] Care Team Providers Care Pharmaceutical Plant Operator Name Role Phone Eryn Lassiter PA-C Primary Care Provider Moon Hua Primary Care Provider [phone] Encounter Details Date Type Department Care Team (Late st Contact Info) Description 03/17/[address] [facility] MEDICAL [address] [place] [address] Carrol Robert RN Social History Tobacco Use Types Packs/Day Years Used Date Smoking Tobacco: Never Assessed Sex and Gender Information Value Date Recorded Sex Assigned at Male 01/31/2023 3:58 PM EDT Legal Sex Male 8:32 PM EDT Gender Identity Male 01/31/2023 3:58 PM EDT Sexual Orientation Choose not to disclose 2022 3:58 PM EDT documented as of this encounter Miscellaneous Notes * Telephone Encounter - Carrol Robert RN - 03/17/2024 11:11 AM EDT [place] [facility] [place] Kaci Nelson NP. Requesting pt psa lab. Call placed to [facility]- PSA lab was not done, was able to have lab added on to pt recent lab work. Call placed to [facility] [place] and left message with information. Fyi to pcp documented in this encounter Plan of Treatment Upcoming Encounters Date Type Department Care Team (Late st Contact Info) Description 04/14/2026 12:20 PM EDT Office Visit [facility] MEDICAL [address] [place] [address] Moon Newby FNP [address] [place] [address] documented as of this encounter Visit Diagnoses Not on filedocumented in this encounter Care Teams Pharmaceutical Plant Operator Relationship Specialty Start Date End Date Eryn Lassiter PA-C PCP - General Family Medicine 11/22/22 03/31/25 Moon Newby FNP [address] [place] [address] PCP - General Family Medicine 04/01/25 documented as of this encounter
--- OUTSIDE RECORDS SUMMARY | 2025-08-17 12:17 | XMS_ITS | Encounter Summary ---
Author Organization [employer] Address [address] [place] [address] Care Team Providers Care Pitting Machine Operator Name Role Phone Eryn Lassiter PA-C Primary Care Provider Moon Hua Primary Care Provider [phone] Encounter Details Date Type Department Care Team (Late st Contact Info) Description 08/16/2024 Orders Only [facility] MEDICAL [address] [place] [address] Provider, MD Fredi Social History Tobacco Use Types Packs/Day Years Used Date Smoking Tobacco: Never Assessed Sex and Gender Information Value Date Recorded Sex Assigned at Male 01/31/2023 3:58 PM EDT Legal Sex Male 8:32 PM EDT Gender Identity Male 01/31/2023 3:58 PM EDT Sexual Orientation Choose not to disclose 2022 3:58 PM EDT documented as of this encounter Plan of Treatment Upcoming Encounters Date Type Department Care Team (Late st Contact Info) Description 04/14/2026 12:20 PM EDT Office Visit [facility] MEDICAL [address] [place] [address] Moon Newby FNP [address] [place] [address] documented as of this encounter Procedures Procedure Name Priority Date/Time Associated Diagnosis Comments MRI PELVIS W WO CONTRAST Routine 05/26/2024 12:18 PM EDT SURGICAL PATHOLOGY Routine 04/15/2024 12:22 PM EDT documented in this encounter Results * MRI PELVIS W WO CONTRAST (05/26/2024 12:18 PM EDT) Anatomical Region Laterality Modality Magnetic Resonan ce us Historical Provider IMG MRI PROCEDURES Final Result * Surgical Pathology (04/15/2024 12:22 PM EDT) us Historical Provider LAB PATHOLOGY ORDERABLES Final Result documented in this encounter Visit Diagnoses Not on filedocumented in this encounter Care Teams Pitting Machine Operator Relationship Specialty Start Date End Date Eryn Lassiter PA-C PCP - General Family Medicine 11/22/22 03/31/25 Moon Newby FNP [address] [place] [address] PCP - General Family Medicine 04/01/25 documented as of this encounter
--- OUTSIDE RECORDS SUMMARY | 2025-08-17 12:17 | XMS_ITS | Clinical Summary ---
Author Organization [employer] Address [address] [place] [address] Care Team Providers Care Compounder Sterile Products Name Role Phone Moon Newby [facility] Primary Care Provider [phone] Allergies No known active allergies Medications cholecalciferol (Vitamin D-3) 50 MCG (1999) tablet 1 tablet in the morning. Active Turmeric 500 MG capsule 1 Active Multiple Vitamin (multivitamin) capsule Take 1 capsule by mouth in the morning. Active tamsulosin (Flomax) 0.4 MG 24 hr capsule Take 0.4 mg by mouth at bedtime. 12/23/2024 Active Active Problems Problem Noted Date Diagnosed Date Unspecified lesions of oral mucosa 10/26/2024 Elevated blood pressure read ing in office without diagnosis of hypertension 10/26/2024 Prostate cancer (CMS/HCC) 07/30/2024 High prostate specific antigen (PSA) 02/03/2023 Overview (02/03/2024): PSA 08/2023 6.3, 04/2023 6.1, 01/2023 5.8, 2017 was 3.5. Pt denies symptoms. Referred to urology and had UL to check prostate size. Has another appt 03/2024 Hyperlipidemia 01/31/2023 Overview (03/15/2024): not on meds, last lipid panel 02/2024. Discussed indications for tx and CV risks. Declines statin. On cholestepure Cholesterol, Total 100 - 199 mg/dL 257 High Triglycerides 0 - 149 mg/dL 98 HDL Cholesterol >39 mg/dL 65 VLDL Cholesterol Humberto 5 - 40 mg/dL 17 LDL Chol Calc ([facility]) 0 - 99 mg/dL 175 Prediabetes 01/31/2023 Overview (03/15/2024): A1C 02/2024 5.9% counseled on diet and exercise Avitaminosis D 01/31/2023 Overview (02/06/2023): last labs 01/2023 wnl Primary osteoarthritis, right hand 01/31/2023 Overview (08/05/2023): Recommended topical NSAID Encounters Date Type Department Care Team Description 06/13/[address] [facility] MEDICAL [address] [place] [address] Moon Newby FNP urology referral from Last 3 Months Immunizations Immunization Administration Dates Next Due Influenza Injectable Quadriv alant Preservative Free IIV4 MDCK 08/05/2023 Influenza, IIV3, injectable 08/01/2022, TD (adult), 2 Lf tetanus tox oid, preservative free, adsorbed 08/04/2001 Tdap 07/31/2021,03/08/2010 Zoster, Recombinant 08/21/2022,02/25/2022 Family History Medical History Relation Name Comments Celiac disease Father Glaucoma Father Hyperlipidemia Father Hypertension Father Hyperlipidemia Mother Thyroid disease Mother Stroke Paternal Grandmother Celiac disease Sister Stroke Sister Relation Name Status Comments Father Father: alive 9 1 yrs, Glaucoma, Celiac, diagnosed with Hypertension, Hypercholesteremia Mother Mother: d 82 yrs, diagnosed with Hypercholesteremia, Thyroid disorder Paternal Grandmother Materna l Grandmother: , diagnosed with Cerebrovascular accident NOS Sister Alive Sister 1: alive , Autoimmune disease: celiac, diagnosed with Cerebrovascular accident NOSSister 2: alive, Autoimmune disease: celiac Social History Tobacco Use Types Packs/Day Years Used Date Smoking Tobacco: Never Smokeless Tobacco: Never Tobacco Cessation:Counseling Given: Not Answered Alcohol Use Standard Drinks/Week Comments Not Currently 0 (1 standard drink = 0.6 oz pur e alcohol) Housing Stability Answer Date Recorded What is your housing situation today? I have manny moreira 10/26/[address] you li ve. Do you have problems with any of the following? None of the above 10/26/2024 Food Insecurity Answer Date Recorded Within the past 12 months, y ou worried that your food would run out before you got money to buy more: Never True 10/26/2024 Within the past 12 months,th e food you bought just didn't last and you didn't have enough money to get more: Never True 07/2025 Transportation Answer Date Recorded In the past 12 months, has l ack of transportation kept you from medical appts, meetings, work or from getting things needed for daily living? No 10/26/2024 Utilities Answer Date Recorded In the past 12 months, has t he electric, gas, oil or water company threatened to shut off services in your home? No 10/26/2024 Depression Answer Date Recorded Patient Health Questionnaire-2 Score 0 10/26/2024 Internet Access Answer Date Recorded Internet Access Q1 Yes 10/26/2024 Internet Access Q2 Not on file 10/26/2024 Sex and Gender Information Value Date Recorded Sex Assigned at Male 01/31/2023 3:58 PM EDT Legal Sex Male 8:32 PM EDT Gender Identity Male 01/31/2023 3:58 PM EDT Sexual Orientation Choose not to disclose 2022 3:58 PM EDT Last Filed Vital Signs Vital Sign Reading Time Taken Comments Blood Pressure 130/70 04/01/2025 9:47 AM EDT Pulse 60 04/01/2025 9:47 AM EDT Temperature 36.3 C (97.3 F) 04/01/2025 9:47 AM EDT Respiratory Rate 16 04/01/2025 9:47 AM EDT Oxygen Saturation 98% 02/03/2024 11:15 AM EDT Inhaled Oxygen Concentration - - Weight 81.6 kg (180 lb) 04/01/2025 9:47 AM EDT Height 181.6 cm (5' 11.5 ) 04/01/2025 9:47 AM ED T Body Mass Index 24.76 04/01/2025 9:47 AM EDT Plan of Treatment Upcoming Encounters Date Type Department Care Team (Late st Contact Info) Description 04/14/2026 12:20 PM EDT Office Visit [facility] MEDICAL [address] [place] [address] Moon Newby FNP [address] [place] [address] Health Maintenance Due Date Last Done Comments CT Colonography 1955 FIT DNA/Cologuard 1955 FIT 1955 FOBT 1955 Sigmoidoscopy 1955 Alcohol/Substance Use Screening 1967 Pneumococcal Vaccine: 50+ Years (1 of 1 - PCV) 2005 Diabetes: Hemoglobin A1C 03/12/2025 024, 01/31/2023, 08/21/2022 COVID-19 Vaccine ( season) 2025 06/15/2024, 06/12/2023, 07/08/2022, Additional history exists Influenza Vaccine (#1) 2025 , 08/01/2022, 07/31/2021 Depression Screening 10/26/2025 10/26/2024, 10/26/19 25 SDOH Screening 10/26/2025 10/26/2024 Tobacco Screening 04/01/2026 04/01/2025 RSV Patients and Patients Aged 60 years or older (1 - 1-dose 75+ series) 2030 Lipid Panel 04/22/2030 04/22/2025, 02/14, 01/31/2023, Additional history exists DTaP/Tdap/Td Vaccines (3 - Td or Tdap) 07/31/2031 07/31/2021, 03/08/2010, 08/04/2001 Colonoscopy 11/10/2034 11/10/2024, 10/17, 11/10/2024 Colorectal Cancer Screening 11/10/2034 Hepatitis C Screening Completed 07/23/2017 Zoster Vaccines Completed 08/21/2022, 02/25/2022 HIB Vaccines Aged Out No longer eligi ble based on patient's age to complete this topic HPV Vaccines Aged Out No longer eligi ble based on patient's age to complete this topic Hepatitis A Vaccines Aged Out No long er eligible based on patient's age to complete this topic Hepatitis B Vaccines Aged Out No long er eligible based on patient's age to complete this topic IPV Vaccines Aged Out No longer eligi ble based on patient's age to complete this topic Meningococcal B Vaccine Aged Out No l onger eligible based on patient's age to complete this topic Meningococcal Vaccine Aged Out No brittani nato eligible based on patient's age to complete this topic RSV under 20 months Aged Out No longe r eligible based on patient's age to complete this topic Rotavirus Vaccines Aged Out No longer eligible based on patient's age to complete this topic Procedures Procedure Name Priority Date/Time Associated Diagnosis Comments LIPID PANEL, STANDARD Routine 04/22/2025 11:48 AM EDT Mixed hyperlipidemia COLONOSCOPY Routine 11/10/2024 11:15 AM EST HEMOGLOBIN A1C Routine 03/12/2024 10:41 AM EDT Insulin resistance from Last 3 Months or Most Recently Relevant to Health Maintenance Results * (ABNORMAL) Lipid Panel, Standard (04/22/2025 11:48 AM EDT) Cholesterol, Total 223(H) 100 - 199 mg/dL [facility] Triglycerides 146 0 - 149 mg/dL [facility] HDL Cholesterol 45 >39 mg/dL [facility] VLDL Cholesterol Humberto 26 5 - 40 mg/dL [facility] LDL Chol Calc (NIH) 152(H) 0 - 99 mg/dL [facility] 1 Blood Venous blood specimen / Unknown 04/22/2025 11:48 AM EDT 04/22/2025 Narrative Resulting Agency Comment Performed at: 01 - [facility] [id number] Curb Setter: Angelina Mora MD, Phone: [phone] us Moon Newby GRINDER SET UP OPERATOR THREAD TOOL LAB BLOOD ORDERABLES Liat astudillo Result [facility] * Colonoscopy (11/10/2024 11:15 AM EST) us Eryn Lassiter PA-C HEALTH MAINTENANCE Final Re sult * (ABNORMAL) Hemoglobin A1c (03/12/2024 10:41 AM EDT) Hemoglobin A1c 5.9(H) 4.8 - 5.6 % [facility] Comment: Prediabetes: 5.7 - 6.4 Diabetes: >6.4 Glycemic control for adults with diabetes: <7.0 Blood Venous blood specimen / Unknown 03/12/2024 10:41 AM EDT 03/12/2024 Narrative [facility] 1 - 03/13/2024 12:05 AM EDT Performed at: 01 - [facility] [address] [id number] Curb Setter: Angelina Mora MD, Phone: [phone] Eryn Lassiter PA-C LAB BLOOD ORDERABLES Final Result [facility] 1 from Last 3 Months or Most Recently Relevant to Health Maintenance Insurance [employer] Care Teams Compounder Sterile Products Relationship Specialty Start Date End Date Moon Newby FNP [address] [place] [address] PCP - General Family Medicine 04/01/25
--- OUTSIDE RECORDS SUMMARY | 2025-08-17 12:17 | XMS_ITS | Encounter Summary ---
Author Organization [facility] Address [address] [place], [place] [address] [place] [address] Phone Care Team Providers Care Material Worker Name Role Phone Jessie Lentz MD Primary Care Provider Eryn Lassiter Primary Care Provider Farooq Malhotra MD Unavailable Jessie Lentz MD Unavailable [phone] Eryn Lassiter Unavailable [phone] Jessie Lentz MD Primary Care Provider Carlos Howell DO Unavailable Encounter Details Date Type Department Care Team (Late st Contact Info) Description 06/05/2020 Procedure Pass [facility] Endoscopy Admitting Dept Virtual Department [address] [place] [id number] Social History Tobacco Use Types Packs/Day Years Used Date Smoking Tobacco: Never Smokeless Tobacco: Never Alcohol Use Standard Drinks/Week Comments Yes 14 (1 standard drink = 0.6 oz pu re alcohol) 14 Sex and Gender Information Value Date Recorded Sex Assigned at Male 10/06/2024 5:45 PM EST Legal Sex Male 9:56 PM EDT Gender Identity Male 10/06/2024 5:45 PM EST Sexual Orientation Straight 10/06/2024 5: 45 PM EST documented as of this encounter Plan of Treatment Not on file documented as of this encounter Visit Diagnoses Not on filedocumented in this encounter Care Teams Material Worker Relationship Specialty Start Date End Date Jessie Lentz MD [address] [place] [address] PCP - General Internal Medicine 06/05/20 07/13/24 Eryn Lassiter PA [address] [place] [address] [email or web address] PCP - General Physician I&C Tech 07/14/24 08/16/24 Jessie Lentz MD [address] [place] [address] PCP - General Pediatrics 08/17/24 Farooq Malhotra MD [address] [place] [phone] Urology 07/14/24 Jessie Lentz MD [address] [place] [address] [email or web address] Pediatrics 08/17/24 08/17/24 Eryn Lassiter PA [address] [place] [phone] [email or web address] Physician I&C Tech 08/17/24 Carlos Howell DO [address] [place] [id number] [email or web address] Radiation Oncology 08/17/24 documented as of this encounter Additional Source Comments The information contained in this document represents components of the legal health record. It is not the complete legal health record.[facility]
--- OUTSIDE RECORDS SUMMARY | 2025-08-17 12:17 | XMS_ITS | Encounter Summary ---
Author Organization [facility] Address [address] [facility] [address] [place] [address] Phone Care Team Providers Care Sales Systems Engineer Name Role Phone Farooq Malhotra MD Unavailable Eryn Lassiter Unavailable [phone] Jessie Lentz MD Primary Care Provider Carlos Howell DO Unavailable Encounter Details Date Type Department Care Team (Late st Contact Info) Description 11/10/2024 Procedure Pass [facility] Endoscopy Admitting Dept Virtual Department [address] [place] [address] [phone] Social History Tobacco Use Types Packs/Day Years [...] on filedocumented in this encounter Care Teams Sales Systems Engineer Relationship Specialty Start Date End Date Jessie Lentz MD [address] [place] [address] PCP - General Pediatrics 08/17/24 Farooq Malhotra MD Urology 07/14/24 Eryn Lassiter PA [address] [place] [address] [email or web address] Physician Complaint Analyst 08/17/24 Carlos Howell DO [address] [place] [phone] [email or web address] Radiation Oncology 08/17/24 documented as of this encounter Additional Source Comments The information contained in this document represents components of the legal health record. It is not the complete legal health record.[facility]
--- OUTSIDE RECORDS SUMMARY | 2025-08-17 12:17 | XMS_ITS | Encounter Summary ---
Author Organization [facility] Address [address] [employer] [facility] [address] [place] [address] Phone Care Team Providers Care Network And Threat Support Specialist Name Role Phone Farooq Malhotra MD Unavailable Eryn Lassiter Unavailable [phone] Jessie Lentz MD Primary Care Provider Carlos Howell DO Unavailable Encounter Details Date Type Department Care Team (Late st Contact Info) Description 12/23/2024 Procedure Pass [facility], Radiology Department Social History Tobacco Use Types Packs/Day Years [...] on filedocumented in this encounter Care Teams Network And Threat Support Specialist Relationship Specialty Start Date End Date Jessie Lentz MD [address] [place] [address] [email or web address] PCP - General Pediatrics 08/17/24 Farooq Malhotra MD Urology 07/14/24 Eryn Lassiter PA [address] [place] [phone] [email or web address] Physician Pre Owned Sales Consultant 08/17/24 Carlos Howell DO [address] [place] [phone] [email or web address] Radiation Oncology 08/17/24 documented as of this encounter Additional Source Comments The information contained in this document represents components of the legal health record. It is not the complete legal health record.[facility]
--- OUTSIDE RECORDS SUMMARY | 2025-08-17 12:17 | XMS_ITS | Encounter Summary ---
Author Organization [employer] Address [address] [facility] [address] [place] [address] Care Team Providers Care Hereditary Cancer Program Coordinator Name Role Phone Eryn Lassiter PA-C Primary Care Provider Moon Hua Primary Care Provider [phone] Encounter Details Date Type Department Care Team (Late st Contact Info) Description 11/12/2024 Orders Only [facility] [address] [place] [address] Eryn Lassiter PA-C Social History Tobacco Use Types Packs/Day Years Used Date Smoking Tobacco: Never Assessed Housing Stability Answer Date Recorded What is your housing situation today? I have manny lillie 10/26/[address] you li [...] Description 04/14/2026 12:20 PM EDT Office Visit [facility] [address] [place] [address] Moon Newby FNP [address] [place] [address] documented as of this encounter Procedures Procedure Name Priority Date/Time Associated Diagnosis Comments HM COLONOSCOPY Routine 11/10/2024 11:15 AM EST documented in this encounter Results * Hm Colonoscopy (11/10/2024 11:15 AM EST) us Eryn Lassiter PA-C HEALTH MAINTENANCE Final Re sult documented in this encounter Visit Diagnoses Not on filedocumented in this encounter Care Teams Hereditary Cancer Program Coordinator Relationship Specialty Start Date End Date Eryn Lassiter PA-C PCP - General Family Medicine 11/22/22 03/31/25 Moon Newby FNP [address] [place] [address] PCP - General Family Medicine 04/01/25 documented as of this encounter
== END 2025-08-17 11:26 | disposition home or self-care (01) ==
LOC: HO.HUSH 10:41
PROVIDERS: PCP Family Medicine; Visit Provider Urology
DX: C61 Malignant neoplasm of prostate (principal); Z19.1 Hormone sensitive malignancy status
CPT/HCPCS: 99213; G2211

== ENCOUNTER → 2025-08-17 10:41 | Outpatient (BNVA) | payer MEDICARE, SELFPAY | PROVIDERS: PCP Family Medicine; Visit Provider Urology | DX: C61 Malignant neoplasm of prostate (principal); Z19.1 Hormone sensitive malignancy status | CPT/HCPCS: 99212 ==